=== PATIENT | male | born 1975 | race Caucasian/White ===

== ENCOUNTER 2020-01-02 13:28 | Outpatient (CLI) | payer OTHER, SELFPAY ==
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
== END 2020-01-02 13:29 ==
PROVIDERS: Visit Provider Chiropractor
DX: M47.22 Other spondylosis with radiculopathy, cervical region (principal); M54.5 Low back pain
CPT/HCPCS: 72052; 72110

== ENCOUNTER 2020-02-13 15:10 | Outpatient (CLI) | payer OTHER, SELFPAY ==
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
== END 2020-02-13 15:11 | disposition home or self-care (01) ==
PROVIDERS: Visit Provider Chiropractor
DX: S33.5XXA Sprain of ligaments of lumbar spine, initial encounter (principal); M47.816 Spondylosis without myelopathy or radiculopathy, lumbar region
CPT/HCPCS: 72148